=== PATIENT | male | born 1970 | race Caucasian/White ===

== ENCOUNTER 2017-01-13 08:17 | Emergency (ER) | payer OTHER ==
[~2017-01-13] VITALS: Ht 182.9 cm; Wt 117.9 kg
--- NOTE | ~2017-01-13 | EKG ---
[place] [address] [email or web address] [address] ELECTROCARDIOGRAM REPORT Name: SOFI DAHL Room #: DEP FLOR Yost#: [id number] Admission: 01/13/17 Attend Phys: Discharge: 01/13/17 Date of : 72 Report #: [id number] THIS REPORT FOR: //name// [facility] ED Test Date: 2017-01-13 Test Time: 09:02:54 Pat Name: SOFI DAHL Department: Room: 170 Gender: M Is Manager: : 1970 Requested By: Scott Crump Order Number: [id number] MD: Owen Asif Measurements Intervals [place] Rate: 91 P: 25 MD: 167 QRS: -7 QRSD: 110 T: 58 QT: 462 QTc: 569 Interpretive Statements Sinus rhythm Prolonged QT interval No previous ECG available for comparison Electronically Signed On 01-14-2017 7:53:42 CDT by Owen Asif [email or web address] <ELECTRONICALLY SIGNED> By: Owen Asif MD, [facility] 01/14/17 [id number] 1 Owen Asif MD, FAC /EPI
[2017-01-13 08:18] VITALS: BP 105/69
[2017-01-13 08:41] LABS: HEMATOCRIT 42.5 % (42.0-52.0); HEMOGLOBIN 14.9 gm/dL (14.0-18.0); MCH 30.8 pg (26.0-34.0); MCHC 35.2 g/dL (28.0-37.0); MCV 87.5 fL (80.0-100.0); PLATELET COUNT 304 thou/uL (150-400); RBC 4.85 mil/uL (4.50-6.00); RDW 13.6 % (10.5-14.5)
[2017-01-13 08:49] LABS: MANUAL DIFF YES
[2017-01-13 08:51] LABS: ANION GAP 15 mmol/L (7-16); BUN 22 mg/dL (7-18); CALCIUM 9.6 mg/dL (8.5-10.1); CHLORIDE 93 mmol/L (98-107); CO2 24 mmol/L (21-32); GLUCOSE 140 mg/dL (74-106); POTASSIUM 3.5 mmol/L (3.5-5.1); SODIUM 132 mmol/L (136-145)
[2017-01-13 08:54] LABS: APTT 32.7 Seconds (24.5-32.8); INR 1.2
[2017-01-13 09:00] LABS: ALKALINE PHOSPHATASE 88 U/L (46-116); MAGNESIUM 1.5 mg/dL (1.8-2.4); SGOT 34 U/L (15-37); SGPT 23 U/L (30-65); TOTAL BILIRUBIN 1.6 mg/dL (<0.1-1.0); TOTAL PROTEIN 8.3 g/dL (6.4-8.2); TROPONIN-I < 0.04 ng/mL (<0.04-0.07)
[2017-01-13 10:15] LABS: ABSOLUTE NEUTROPHILS 10.6 thou/uL (1.4-8.2); PLATELET ESTIMATE NORMAL; TOTAL CELL COUNT 100
[2017-01-13 12:27] VITALS: BP 113/70
[2017-01-14 02:06] LABS: GLYCOHEMOGLOBIN (HGB A1C) 5.4 % (4.8-5.6)
== END 2017-01-13 12:20 | disposition short-term general hospital (02) ==
LOC: ER 08:17 → EROBS 09:33 → ER 09:33
PROVIDERS: Emergency Medicine; Nurse Practitioner
DX: H54.0 Blindness, both eyes (principal); E80.6 Other disorders of bilirubin metabolism; E83.42 Hypomagnesemia; N17.9 Acute kidney failure, unspecified